=== PATIENT | female | born 1955 | race Caucasian/White ===

== ENCOUNTER 2021-06-30 10:11 | Outpatient (CLI) | payer MEDICARE | END 2021-06-30 10:12 | disposition home or self-care (01) | LOC: BICMAMMO 10:11 | PROVIDERS: ATTEND Family Medicine | DX: Z12.31 Encounter for screening mammogram for malignant neoplasm of breast (principal); Z78.0 Asymptomatic menopausal state; Z13.820 Encounter for screening for osteoporosis; M54.6 Pain in thoracic spine; M81.0 Age-related osteoporosis without current pathological fracture | CPT/HCPCS: 77063; 77067; 77080 ==

== ENCOUNTER 2021-06-30 11:01 | Outpatient (CLI) | payer MEDICARE | END 2021-06-30 11:02 | disposition home or self-care (01) | LOC: RAD 11:01 | PROVIDERS: ATTEND Family Medicine | DX: M54.6 Pain in thoracic spine (principal) | CPT/HCPCS: 71046 ==

== ENCOUNTER 2021-10-28 12:26 | Outpatient (CLI) | payer OTHER, MEDICAID | END 2021-10-28 12:27 | disposition home or self-care (01) | LOC: SCSMRI 12:26 | PROVIDERS: ATTEND Orthopaedic Surgery | DX: M75.121 Complete rotator cuff tear or rupture of right shoulder, not specified as traumatic (principal) ==

== ENCOUNTER 2024-04-13 14:29 | Emergency (ER) | payer MEDICARE, OTHER | END 2024-04-13 15:33 | disposition left against medical advice (07) | LOC: ERS 14:29 | DX: K59.00 Constipation, unspecified (principal) ==

== ENCOUNTER 2024-05-13 22:33 | Emergency (ER) | payer OTHER ==
[2024-05-13 23:24] LABS: #Basophils 0.04 10x3/uL (0.0-0.2); %Basophils 0.4 % (0.0-1.0); %Eosinophils 5.7 % (0.0-10.0); %Lymphocytes 17.7 % (21.0-51.0); %Monocytes 5.5 % (0.0-10.0); %Neutrophils 70.3 % (42.0-75.0); Hematocrit 39.1 % (36.0-47.0); Hemoglobin 13.4 g/dL (12.0-16.0); Mean Corpuscular HGB CONC 34.3 g/dL (32.0-36.0); Mean Corpuscular Volume 99.2 fL (78.0-98.0); Platelet Count 118 10x3/uL (130-400); RBC Distribution Width 12.6 % (11.5-14.5); Red Blood Cell (RBC) Count 3.94 mill/uL (4.20-5.40)
[2024-05-13 23:37] LABS: ALT (SGPT) 17 U/L (8-55); AST (SGOT) 17 U/L (5-34); Albumin 3.3 g/dL (3.4-4.8); Alkaline Phosphatase 85 U/L (40-110); Anion Gap 14 mmol/L (10-20); BUN (Urea Nitrogen) 14 mg/dL (9.8-20.1); Bilirubin, Total 0.5 mg/dL (0.2-1.2); Calc. Creatinine Clearance 0 mL/min (70-130); Calcium 9.2 mg/dL (7.8-10.44); Carbon Dioxide 26 mmol/L (23-31); Chloride 101 mmol/L (98-107); Estimated GFR 45; Glucose 158 mg/dL (80-115); Lipase 36 U/L (8-78); Potassium 3.6 mmol/L (3.5-5.1); Protein, Total 7.3 g/dL (5.8-8.1); Sodium 137 mmol/L (136-145)
[2024-05-13 23:40] LABS: Troponin I 0.015 ng/mL (< 0.028)
== END 2024-05-14 00:45 | disposition home or self-care (01) ==
LOC: ERS 22:33
DX: R07.89 Other chest pain (principal); R06.02 Shortness of breath; E11.9 Type 2 diabetes mellitus without complications; I50.9 Heart failure, unspecified; F17.210 Nicotine dependence, cigarettes, uncomplicated; Z55.6 Problems related to health literacy
CPT/HCPCS: 36415; 71045; 80053; 83690; 83880; 84484; 85025; 93005